=== PATIENT | female | born 1960 | race Two or more races ===

== ENCOUNTER 2019-01-19 06:02 | Day surgery (SDC) | payer MEDICARE, OTHER ==
[2019-01-19] MEDS ORDERED: ANESTHESIA TRAY IN PYXIS 1 EA TRAY MC ONE (06:59)
[2019-01-19] MEDS ORDERED: BUPIVACAINE 0.5 % PF 150 MG/30 ML VIAL ONE (06:59)
[2019-01-19] MEDS ORDERED: MIDAZOLAM HCL 2 MG/2ML VIAL ONE (07:23)
[2019-01-19] MEDS ORDERED: FENTANYL PF 250MCG/5ML AMPUL ONE (07:24)
[2019-01-19] MEDS ORDERED: ROCURONIUM BROMIDE 50 MG/5 ML ONE (07:24)
[2019-01-19] MEDS ORDERED: FAMOTIDINE/PF INJ 20 MG/2 ML VIAL IV ONE (07:25)
[2019-01-19] MEDS ORDERED: CLINDAMYCIN 900 MG/6 ML VIAL ONE (07:48)
[2019-01-19] MEDS ORDERED: FENTANYL PF 100MCG/2ML AMPUL ONE (08:57)
[2019-01-19] MEDS ORDERED: ONDANSETRON HCL/PF 4 MG/2 ML VIAL IVP PRN (09:30)
[2019-01-19] MEDS ORDERED: MORPHINE SULFATE INJ 2 MG/ML DISP.SYRIN IV PRN (09:30)
[2019-01-19] MEDS ORDERED: oxyCODONE/APAP (5/325 MG) 1 UDTAB TABLET PO PRN (09:30)
[2019-01-19] MEDS ORDERED: ONDANSETRON HCL/PF 4 MG/2 ML VIAL ONE (09:46)
== END 2019-01-19 10:30 | disposition home or self-care (01) ==
LOC: DS 06:02
PROVIDERS: ATTEND Surgery
DX: K80.10 Calculus of gallbladder with chronic cholecystitis without obstruction (principal); K82.8 Other specified diseases of gallbladder; E66.3 Overweight
CPT/HCPCS: 36415; 47562; 85610; 85730; 88304; J1100; J2250; J2405 ×2; J2704; J2710; J2765; J3010 ×2; J3490 ×4; J7050